=== PATIENT | male | born 1960 | race African-American/Black ===

== ENCOUNTER 2024-01-15 17:11 | Inpatient (IN) | payer OTHER ==
[2024-01-15] MEDS ORDERED: IBUPROFEN 600 MG TABLET (FP) PO PRN (21:11)
[2024-01-15] MEDS ORDERED: NALOXONE HCL (KLOXXADO) 8 MG SPRAY NS PRN (21:11)
[2024-01-15] MEDS ORDERED: BENZOCAINE/MENTHOL (CHLORASEPTIC ) LOZENGE MM PRN (21:11)
[2024-01-15] MEDS ORDERED: guaiFENesin 600 MG TABLET.ER (FP) PO PRN (21:11)
[2024-01-15] MEDS ORDERED: MAG HYDROX/AL HYDROX/SIMETH 30 ML UNIT-DOSE CUP PO PRN (21:11)
[2024-01-15] MEDS ORDERED: ACETAMINOPHEN 325 MG TABLET (FP) PO PRN (21:11)
[2024-01-15] MEDS ORDERED: LOPERAMIDE HCL 2 MG CAPSULE PO PRN (21:11)
[2024-01-15] MEDS ORDERED: IBUPROFEN 400 MG TABLET (FP) PO PRN (21:11)
[2024-01-15] MEDS ORDERED: NALOXONE HCL 0.4 MG/ML VIAL IM PRN (21:11)
[2024-01-15] MEDS ORDERED: MAGNESIUM HYDROX 2400MG/30ML ORAL SUSPENSION 30 ML CUP PO PRN (21:11)
[2024-01-15] MEDS ORDERED: BENZONATATE 200 MG CAPSULE PO PRN (21:11)
[2024-01-15] MEDS ORDERED: amLODIPine BESYLATE 5 MG TABLET (FP) ONE (21:45)
[2024-01-15] MEDS: amLODIPine BESYLATE 5 MG TABLET (FP) PO SCH (21:48)
[2024-01-15] MEDS: MELATONIN 5 MG TABLETS PO SCH (23:53)
[2024-01-15] MEDS: THIAMINE HCL 100 MG TABLET (FP) PO SCH (23:53)
[2024-01-16 01:06] VITALS: BMI 31.0
[2024-01-16] MEDS ORDERED: TUBERCULIN PPD 5 TU/0.1ML SYRINGE (IN PATIENT USE ONLY) ID ONE (01:14)
[2024-01-16] MEDS: PRENATAL VITAMINS W/ FOLIC ACID TABLET (FP) PO SCH (09:57)
[2024-01-16 10:50] LABS: HEMATOCRIT 41.8 % (35.4-49); HEMOGLOBIN 13.7 GM/dL (11.7-16.9); MCH 28.5 pg (25.7-33.7); MCHC 32.7 g/dl (32.0-35.9); MEAN CELL VOLUME 87.3 fl (80-96); MEAN PLT VOLUME 8.8 fl (7.5-11.1); PLATELET COUNT 199 10^3/uL (134-434); RBC 4.78 M/mm3 (4.00-5.60); RDW 13.8 % (11.9-15.9); WHITE BLOOD COUNT 4.3 K/mm3 (4.0-10.0)
[2024-01-16] MEDS: TAMSULOSIN HCL 0.4 MG CAP PO SCH (11:04)
[2024-01-16] MEDS: TUBERCULIN PPD 5 TU/0.1ML SYRINGE (IN PATIENT USE ONLY) ID ONE (11:04)
[2024-01-16 11:45] LABS: SYPHILIS W/ RPR CONF NON-REACTIVE (NONREACTIVE)
[2024-01-16 11:46] LABS: CHLORIDE 106 mmol/L (98-107); POTASSIUM 3.8 mmol/L (3.5-5.1); SODIUM 140 mmol/L (136-145)
[2024-01-16 11:59] LABS: ALBUMIN 3.3 g/dl (3.4-5.0); ANION GAP 8 mmol/L (4-13); BLOOD UREA NITROGEN 13.7 mg/dL (7-18); CO2 27 mmol/L (21-32)
[2024-01-16 12:00] LABS: GLUCOSE,RANDOM 139 mg/dL (74-106)
[2024-01-16 12:02] LABS: BILIRUBIN,TOTAL 0.2 mg/dL (0.2-1); CREATININE 0.8 mg/dL (0.55-1.3); SGOT/AST 24 U/L (15-37); SGPT/ALT 27 U/L (13-61); TOT PROT 7.2 g/dl (6.4-8.2)
[2024-01-16 12:03] LABS: ALK PHOS 79 U/L (45-117)
[2024-01-16 15:26] LABS: PH,URINE 5.5 (5.0-8.0); URINE APPEARANCE CLEAR; URINE BILIRUBIN NEGATIVE (NEGATIVE); URINE COLOR YELLOW; URINE GLUCOSE (UA) NEGATIVE (NEGATIVE); URINE KETONE NEGATIVE (NEGATIVE); URINE LEUK ESTERASE NEGATIVE (NEGATIVE); URINE NITRITE NEGATIVE (NEGATIVE); URINE PROTEIN NEGATIVE (NEGATIVE)
[2024-01-19] MEDS: MELATONIN 5 MG TABLETS PO PRN (21:07)
[2024-01-23] MEDS: TOLNAFTATE 1% CREAM 15 GM TUBE TP SCH (21:29)
[2024-01-27] MEDS: BACLOFEN 10 MG TABLET (FP) PO SCH (21:39)
[2024-01-28] MEDS: SALICYLIC ACID (WART REMOVER) 9 ML LIQUID TP SCH (09:52)
[2024-01-31] MEDS: POLYETHYLENE GLYCOL (HEALTHYLAX) 3350 17 GM PACKET PO PRN (10:16)
[2024-02-04 16:16] LABS: HIV INTERPRETATION NEGATIVE (NEGATIVE)
[2024-02-11 06:48] VITALS: TEMP 97.1
[2024-02-11 09:05] VITALS: BP 138/81; PULSE 99; RESP 16
== END 2024-02-11 09:05 | disposition home or self-care (01) | DRG 772 ==
LOC: YASAS 17:11 → Y3W 01-16 01:05
PROVIDERS: ADMIT Allergy & Immunology; ATTEND Psychiatry & Neurology Pain Medicine
PROC: HZ42ZZZ Group Counseling for Substance Abuse Treatment, Cognitive-Behavioral (ICD-10-PCS; principal; 2024-01-16)
DX: F10.20 Alcohol dependence, uncomplicated (principal); F14.20 Cocaine dependence, uncomplicated; F12.20 Cannabis dependence, uncomplicated; F19.282 Other psychoactive substance dependence with psychoactive substance-induced sleep disorder; G47.00 Insomnia, unspecified; I10 Essential (primary) hypertension; M19.90 Unspecified osteoarthritis, unspecified site; M54.50 Low back pain, unspecified; G89.29 Other chronic pain; N40.0 Benign prostatic hyperplasia without lower urinary tract symptoms; B35.1 Tinea unguium; B35.3 Tinea pedis; Z96.642 Presence of left artificial hip joint; Z91.148 Patient's other noncompliance with medication regimen for other reason
CPT/HCPCS: 36415; 80053; 80307; 81003; 82962; 85027; 86780; 86803; 87389; 87635; 93005; 93010; J0475

== ENCOUNTER 2024-03-13 13:38 | Inpatient (IN) | payer OTHER ==
[2024-03-13 15:37] VITALS: BMI 29.5
[2024-03-13] MEDS ORDERED: METHOCARBAMOL 500 MG TABLET PO PRN (17:34)
[2024-03-13] MEDS ORDERED: DICYCLOMINE HCL 10 MG CAPSULE PO PRN (17:34)
[2024-03-13] MEDS ORDERED: MAGNESIUM HYDROX 2400MG/30ML ORAL SUSPENSION 30 ML CUP PO PRN (17:34)
[2024-03-13] MEDS ORDERED: BENZOCAINE/MENTHOL (CHLORASEPTIC ) LOZENGE MM PRN (17:34)
[2024-03-13] MEDS ORDERED: NALOXONE HCL (KLOXXADO) 8 MG SPRAY NS PRN (17:34)
[2024-03-13] MEDS ORDERED: chlordiazePOXIDE HCL 25 MG CAPSULE PO PRN (17:34)
[2024-03-13] MEDS ORDERED: BENZONATATE 200 MG CAPSULE PO PRN (17:34)
[2024-03-13] MEDS ORDERED: ONDANSETRON *ODT* 4 MG TABLET SL PRN (17:34)
[2024-03-13] MEDS ORDERED: hydrOXYzine PAMOATE 25 MG CAPSULE (FP) PO PRN (17:34)
[2024-03-13] MEDS ORDERED: BISMUTH SUBSALICYLATE 524 MG/30 ML PO PRN (17:34)
[2024-03-13] MEDS ORDERED: guaiFENesin 600 MG TABLET.ER (FP) PO PRN (17:34)
[2024-03-13] MEDS ORDERED: IBUPROFEN 400 MG TABLET (FP) PO PRN (17:34)
[2024-03-13] MEDS ORDERED: POLYETHYLENE GLYCOL (HEALTHYLAX) 3350 17 GM PACKET PO PRN (17:34)
[2024-03-13] MEDS ORDERED: NALOXONE HCL 0.4 MG/ML VIAL IM PRN (17:34)
[2024-03-13] MEDS ORDERED: LOPERAMIDE HCL 2 MG CAPSULE PO PRN (17:34)
[2024-03-13] MEDS ORDERED: ACETAMINOPHEN 325 MG TABLET (FP) PO PRN (17:34)
[2024-03-13] MEDS ORDERED: IBUPROFEN 600 MG TABLET (FP) PO PRN (17:34)
[2024-03-13] MEDS ORDERED: MAG HYDROX/AL HYDROX/SIMETH 30 ML UNIT-DOSE CUP PO PRN (17:34)
[2024-03-13] MEDS: THIAMINE 100 MG TABLET PO SCH (22:17)
[2024-03-13] MEDS: chlordiazePOXIDE HCL 25 MG CAPSULE PO SCH (22:17)
[2024-03-13] MEDS: MELATONIN 5 MG TABLETS PO SCH (22:17)
[2024-03-14] MEDS: amLODIPine BESYLATE 10 MG TABLET (FP) PO SCH (10:08)
[2024-03-14] MEDS: TAMSULOSIN HCL 0.4 MG CAP PO SCH (10:08)
[2024-03-14] MEDS: PRENATAL VITAMINS W/ FOLIC ACID TABLET (FP) PO SCH (10:08)
[2024-03-14 11:16] LABS: HEMOGLOBIN 14.1 GM/dL (11.7-16.9); MCH 29.1 pg (25.7-33.7); MCHC 33.5 g/dl (32.0-35.9); MEAN CELL VOLUME 86.9 fl (80-96); MEAN PLT VOLUME 8.9 fl (7.5-11.1); PLATELET COUNT 153 10^3/uL (134-434); RBC 4.84 M/mm3 (4.00-5.60); RDW 13.7 % (11.9-15.9); WHITE BLOOD COUNT 3.7 K/mm3 (4.0-10.0)
[2024-03-14 11:19] LABS: CHLORIDE 104 mmol/L (98-107); POTASSIUM 3.4 mmol/L (3.5-5.1); SODIUM 136 mmol/L (136-145)
[2024-03-14 11:21] LABS: CALCIUM 8.7 mg/dL (8.5-10.1)
[2024-03-14 11:23] LABS: ALBUMIN 3.5 g/dl (3.4-5.0); ANION GAP 4 mmol/L (4-13); BLOOD UREA NITROGEN 11.2 mg/dL (7-18); CO2 28 mmol/L (21-32); GLUCOSE,RANDOM 84 mg/dL (74-106)
[2024-03-14 11:25] LABS: CREATININE 0.9 mg/dL (0.55-1.3); SGOT/AST 35 U/L (15-37); SGPT/ALT 34 U/L (13-61)
[2024-03-14 11:27] LABS: BILIRUBIN,TOTAL 0.5 mg/dL (0.2-1); TOT PROT 7.1 g/dl (6.4-8.2)
[2024-03-14 11:29] LABS: ALK PHOS 67 U/L (45-117)
[2024-03-15] MEDS: chlordiazePOXIDE HCL 25 MG CAPSULE PO SCH (06:00)
[2024-03-16] MEDS ORDERED: chlordiazePOXIDE HCL 10 MG CAPSULE PO PRN
[2024-03-16] MEDS: chlordiazePOXIDE HCL 10 MG CAPSULE PO SCH (05:50)
[2024-03-16 09:11] VITALS: BP 144/87; PULSE 89; RESP 20; TEMP 96.8
[2024-03-17] MEDS ORDERED: chlordiazePOXIDE HCL 10 MG CAPSULE PO SCH (05:00)
[2024-03-18] MEDS ORDERED: chlordiazePOXIDE HCL 10 MG CAPSULE PO ONE (05:00)
== END 2024-03-16 12:32 | disposition home or self-care (01) | DRG 774 ==
LOC: YASAS 13:38 → Y3N 17:17
PROVIDERS: ADMIT Allergy & Immunology; ATTEND Surgery
PROC: HZ2ZZZZ Detoxification Services for Substance Abuse Treatment (ICD-10-PCS; principal; 2024-03-13)
DX: F10.230 Alcohol dependence with withdrawal, uncomplicated (principal); F14.20 Cocaine dependence, uncomplicated; I10 Essential (primary) hypertension; N40.0 Benign prostatic hyperplasia without lower urinary tract symptoms; Z96.642 Presence of left artificial hip joint
CPT/HCPCS: 36415; 80053; 80307; 82140; 85027; 86780; 93005; 93010

== ENCOUNTER 2024-05-12 09:52 | Inpatient (IN) | payer OTHER ==
[2024-05-12 10:20] VITALS: BMI 30.7
[2024-05-12] MEDS ORDERED: LOPERAMIDE HCL 2 MG CAPSULE PO PRN (10:47)
[2024-05-12] MEDS ORDERED: MAG HYDROX/AL HYDROX/SIMETH 30 ML UNIT-DOSE CUP PO PRN (10:47)
[2024-05-12] MEDS ORDERED: MAGNESIUM HYDROX 2400MG/30ML ORAL SUSPENSION 30 ML CUP PO PRN (10:47)
[2024-05-12] MEDS ORDERED: hydrOXYzine PAMOATE 25 MG CAPSULE (FP) PO PRN (10:47)
[2024-05-12] MEDS ORDERED: BENZONATATE 200 MG CAPSULE PO PRN (10:47)
[2024-05-12] MEDS ORDERED: BENZOCAINE/MENTHOL (CHLORASEPTIC ) LOZENGE MM PRN (10:47)
[2024-05-12] MEDS ORDERED: guaiFENesin 600 MG TABLET.ER (FP) PO PRN (10:47)
[2024-05-12] MEDS ORDERED: ACETAMINOPHEN 325 MG TABLET (FP) PO PRN (10:47)
[2024-05-12] MEDS ORDERED: BISMUTH SUBSALICYLATE 262 MG/15 ML BTL PO PRN (10:47)
[2024-05-12] MEDS ORDERED: IBUPROFEN 400 MG TABLET (FP) PO PRN (10:47)
[2024-05-12] MEDS ORDERED: ONDANSETRON *ODT* 4 MG TABLET SL PRN (10:47)
[2024-05-12] MEDS ORDERED: DICYCLOMINE HCL 10 MG CAPSULE PO PRN (10:47)
[2024-05-12] MEDS ORDERED: POLYETHYLENE GLYCOL (HEALTHYLAX) 3350 17 GM PACKET PO PRN (10:47)
[2024-05-12] MEDS: TAMSULOSIN HCL 0.4 MG CAP PO SCH (12:11)
[2024-05-12] MEDS: THIAMINE 100 MG TABLET PO SCH (21:43)
[2024-05-12] MEDS: MELATONIN 5 MG TABLETS PO SCH (21:44)
[2024-05-13] MEDS: PRENATAL VITAMINS W/ FOLIC ACID TABLET (FP) PO SCH (09:52)
[2024-05-13] MEDS: amLODIPine BESYLATE 10 MG TABLET (FP) PO SCH (09:52)
[2024-05-13 12:03] LABS: HEMATOCRIT 38.6 % (35.4-49); HEMOGLOBIN 12.5 GM/dL (11.7-16.9); MCH 28.5 pg (25.7-33.7); MCHC 32.3 g/dl (32.0-35.9); MEAN CELL VOLUME 88.2 fl (80-96); MEAN PLT VOLUME 8.6 fl (7.5-11.1); PLATELET COUNT 175 10^3/uL (134-434); RBC 4.38 M/mm3 (4.00-5.60); RDW 13.5 % (11.9-15.9); WHITE BLOOD COUNT 4.8 K/mm3 (4.0-10.0)
[2024-05-13 12:13] LABS: CHLORIDE 105 mmol/L (98-107); POTASSIUM 3.4 mmol/L (3.5-5.1); SODIUM 138 mmol/L (136-145)
[2024-05-13 12:19] LABS: ALBUMIN 3.2 g/dl (3.4-5.0); GLUCOSE,RANDOM 85 mg/dL (74-106)
[2024-05-13 12:20] LABS: ANION GAP 4 mmol/L (4-13); BLOOD UREA NITROGEN 9.4 mg/dL (7-18); CALCIUM 8.8 mg/dL (8.5-10.1); CO2 29 mmol/L (21-32)
[2024-05-13 12:21] LABS: CREATININE 0.7 mg/dL (0.55-1.3)
[2024-05-13 12:22] LABS: BILIRUBIN,TOTAL 0.4 mg/dL (0.2-1); SGOT/AST 28 U/L (15-37); SGPT/ALT 28 U/L (13-61); TOT PROT 6.4 g/dl (6.4-8.2)
[2024-05-13 12:23] LABS: ALK PHOS 56 U/L (45-117)
[2024-05-14] MEDS: METHOCARBAMOL 500 MG TABLET PO PRN (09:53)
[2024-05-14] MEDS: IBUPROFEN 600 MG TABLET (FP) PO PRN (15:07)
[2024-05-14 16:43] VITALS: BP 136/80; PULSE 78; RESP 18; TEMP 97.6
== END 2024-05-14 16:55 | disposition other institution (70) | DRG 774 ==
LOC: YASAS 09:52 → Y3N 11:10
PROVIDERS: ADMIT Allergy & Immunology; ATTEND Surgery
PROC: HZ2ZZZZ Detoxification Services for Substance Abuse Treatment (ICD-10-PCS; principal; 2024-05-12)
DX: F10.230 Alcohol dependence with withdrawal, uncomplicated (principal); F14.20 Cocaine dependence, uncomplicated; F12.20 Cannabis dependence, uncomplicated; I10 Essential (primary) hypertension; M16.11 Unilateral primary osteoarthritis, right hip; M54.50 Low back pain, unspecified; G89.29 Other chronic pain; N40.0 Benign prostatic hyperplasia without lower urinary tract symptoms; Z56.0 Unemployment, unspecified; Z59.02 Unsheltered homelessness
CPT/HCPCS: 36415; 80053; 80305; 80307; 85027; 86780

== ENCOUNTER 2024-05-14 17:06 | Inpatient (IN) | payer OTHER ==
[2024-05-14] MEDS ORDERED: POLYETHYLENE GLYCOL (HEALTHYLAX) 3350 17 GM PACKET PO PRN (18:41)
[2024-05-14] MEDS ORDERED: METHOCARBAMOL 500 MG TABLET PO PRN (18:41)
[2024-05-14] MEDS ORDERED: NALOXONE (NARCAN) HCL 4 MG/0.1 ML SPRAY NS PRN (18:41)
[2024-05-14] MEDS ORDERED: IBUPROFEN 400 MG TABLET (FP) PO PRN (18:41)
[2024-05-14] MEDS ORDERED: BENZOCAINE/MENTHOL (CHLORASEPTIC ) LOZENGE MM PRN (18:41)
[2024-05-14] MEDS ORDERED: ACETAMINOPHEN 325 MG TABLET (FP) PO PRN (18:41)
[2024-05-14] MEDS ORDERED: NALOXONE HCL 0.4 MG/ML VIAL IVPUSH PRN (18:41)
[2024-05-14] MEDS ORDERED: MAGNESIUM HYDROX 2400MG/30ML ORAL SUSPENSION 30 ML CUP PO PRN (18:41)
[2024-05-14] MEDS ORDERED: BENZONATATE 200 MG CAPSULE PO PRN (18:41)
[2024-05-14] MEDS ORDERED: guaiFENesin 600 MG TABLET.ER (FP) PO PRN (18:41)
[2024-05-14] MEDS ORDERED: MAG HYDROX/AL HYDROX/SIMETH 30 ML UNIT-DOSE CUP PO PRN (18:41)
[2024-05-14] MEDS: MELATONIN 5 MG TABLETS PO SCH (22:50)
[2024-05-14] MEDS: THIAMINE 100 MG TABLET PO SCH (22:51)
[2024-05-15] MEDS: TAMSULOSIN HCL 0.4 MG CAP PO SCH (07:01)
[2024-05-15] MEDS: PRENATAL VITAMINS W/ FOLIC ACID TABLET (FP) PO SCH (10:00)
[2024-05-15] MEDS: amLODIPine BESYLATE 10 MG TABLET (FP) PO SCH (10:00)
[2024-05-15] MEDS: hydrOXYzine PAMOATE 25 MG CAPSULE (FP) PO PRN (21:30)
[2024-05-16] MEDS: IBUPROFEN 600 MG TABLET (FP) PO PRN (10:15)
[2024-05-17] MEDS: LOPERAMIDE HCL 2 MG CAPSULE PO PRN (06:44)
[2024-05-17] MEDS: POTASSIUM CHLORIDE ORAL LIQUID 20 MEQ/15 ML PO ONE (14:29)
[2024-05-20] MEDS: TAMSULOSIN HCL 0.4 MG CAP PO SCH (06:39)
[2024-05-26 06:59] VITALS: RESP 18
[2024-06-03] MEDS: TOLNAFTATE 1% CREAM 15 GM TUBE TP SCH (10:19)
[2024-06-03] MEDS: BISACODYL 5 MG TABLET.DR (FP) PO PRN (10:19)
[2024-06-08 07:02] VITALS: TEMP 97
[2024-06-09 11:59] VITALS: BP 116/61; PULSE 96
== END 2024-06-09 09:20 | disposition home or self-care (01) | DRG 772 ==
LOC: YASAS 17:06 → Y5N 17:07
PROVIDERS: ADMIT Allergy & Immunology; ATTEND Psychiatry & Neurology Pain Medicine
PROC: HZ42ZZZ Group Counseling for Substance Abuse Treatment, Cognitive-Behavioral (ICD-10-PCS; principal; 2024-05-14)
DX: F14.20 Cocaine dependence, uncomplicated (principal); F10.20 Alcohol dependence, uncomplicated; F12.20 Cannabis dependence, uncomplicated; I10 Essential (primary) hypertension; B35.3 Tinea pedis; K59.00 Constipation, unspecified; M17.11 Unilateral primary osteoarthritis, right knee; N40.0 Benign prostatic hyperplasia without lower urinary tract symptoms; Z59.02 Unsheltered homelessness
CPT/HCPCS: 72100-TC-FY

== ENCOUNTER 2025-02-03 08:16 | Inpatient (IN) | payer OTHER ==
[2025-02-03 08:52] VITALS: BMI 28.0
[2025-02-03] MEDS ORDERED: BISMUTH SUBSALICYLATE 262 MG/15 ML BTL PO PRN (09:06)
[2025-02-03] MEDS ORDERED: LOPERAMIDE HCL 2 MG CAPSULE PO PRN (09:06)
[2025-02-03] MEDS ORDERED: chlordiazePOXIDE HCL 25 MG CAPSULE PO PRN (09:06)
[2025-02-03] MEDS ORDERED: NALOXONE (NARCAN) HCL 4 MG/0.1 ML SPRAY NS PRN (09:06)
[2025-02-03] MEDS ORDERED: DICYCLOMINE HCL 10 MG CAPSULE PO PRN (09:06)
[2025-02-03] MEDS ORDERED: BENZOCAINE/MENTHOL (CHLORASEPTIC ) LOZENGE MM PRN (09:06)
[2025-02-03] MEDS ORDERED: IBUPROFEN 600 MG TABLET (FP) PO PRN (09:06)
[2025-02-03] MEDS ORDERED: MAGNESIUM HYDROX 2400MG/30ML ORAL SUSPENSION 30 ML CUP PO PRN (09:06)
[2025-02-03] MEDS ORDERED: POLYETHYLENE GLYCOL (HEALTHYLAX) 3350 17 GM PACKET PO PRN (09:06)
[2025-02-03] MEDS ORDERED: hydrOXYzine PAMOATE 25 MG CAPSULE (FP) PO PRN (09:06)
[2025-02-03] MEDS ORDERED: BENZONATATE 200 MG CAPSULE PO PRN (09:06)
[2025-02-03] MEDS ORDERED: MAG HYDROX/AL HYDROX/SIMETH 30 ML UNIT-DOSE CUP PO PRN (09:06)
[2025-02-03] MEDS ORDERED: ONDANSETRON *ODT* 4 MG TABLET SL PRN (09:06)
[2025-02-03] MEDS ORDERED: METHOCARBAMOL 500 MG TABLET PO PRN (09:06)
[2025-02-03] MEDS ORDERED: guaiFENesin 600 MG TABLET.ER (FP) PO PRN (09:06)
[2025-02-03] MEDS ORDERED: IBUPROFEN 400 MG TABLET (FP) PO PRN (09:06)
[2025-02-03] MEDS ORDERED: MELATONIN 5 MG TABLETS PO PRN (09:10)
[2025-02-03] MEDS ORDERED: BISACODYL 5 MG TABLET.DR (FP) PO PRN (09:10)
[2025-02-03] MEDS ORDERED: cloNIDine HCL 0.1 MG TABLET ONE (10:30)
[2025-02-03] MEDS ORDERED: chlordiazePOXIDE HCL 25 MG CAPSULE ONE (10:30)
[2025-02-03] MEDS ORDERED: amLODIPine BESYLATE 5 MG TABLET (FP) ONE (10:30)
[2025-02-03] MEDS ORDERED: PRENATAL VITAMINS W/ FOLIC ACID TABLET (FP) PO ONE (10:31)
[2025-02-03] MEDS: amLODIPine BESYLATE 10 MG TABLET (FP) PO SCH (10:32)
[2025-02-03] MEDS: chlordiazePOXIDE HCL 25 MG CAPSULE PO SCH (10:32)
[2025-02-03] MEDS: cloNIDine HCL 0.1 MG TABLET PO SCH (10:32)
[2025-02-03] MEDS: PRENATAL VITAMINS W/ FOLIC ACID TABLET (FP) PO SCH (10:33)
[2025-02-03] MEDS: THIAMINE 100 MG TABLET PO SCH (22:25)
[2025-02-03] MEDS: MELATONIN 5 MG TABLETS PO SCH (22:25)
[2025-02-04] MEDS: TAMSULOSIN HCL 0.4 MG CAP PO SCH (06:37)
[2025-02-04 12:15] LABS: HEMATOCRIT 38.3 % (35.4-49); HEMOGLOBIN 12.8 GM/dL (11.7-16.9); MCH 28.8 pg (25.7-33.7); MCHC 33.5 g/dl (32.0-35.9); MEAN PLT VOLUME 9.5 fl (7.5-11.1); PLATELET COUNT 126 10^3/uL (134-434); RBC 4.46 M/mm3 (4.00-5.60); RDW 13.3 % (11.9-15.9)
[2025-02-04 12:26] LABS: POTASSIUM 4.1 mmol/L (3.5-5.1)
[2025-02-04 12:30] LABS: ALBUMIN 3.7 g/dl (3.4-5.0); BLOOD UREA NITROGEN 10.7 mg/dL (7-18); CALCIUM 9.1 mg/dL (8.5-10.1)
[2025-02-04 12:34] LABS: CREATININE 0.9 mg/dL (0.55-1.3)
[2025-02-04 12:35] LABS: BILIRUBIN,TOTAL 0.5 mg/dL (0.2-1); TOT PROT 7.2 g/dl (6.4-8.2)
[2025-02-05] MEDS: chlordiazePOXIDE HCL 25 MG CAPSULE PO SCH (06:11)
[2025-02-06] MEDS ORDERED: chlordiazePOXIDE HCL 10 MG CAPSULE PO PRN
[2025-02-06] MEDS: chlordiazePOXIDE HCL 10 MG CAPSULE PO SCH (06:03)
[2025-02-07] MEDS: chlordiazePOXIDE HCL 10 MG CAPSULE PO SCH (05:45)
[2025-02-08] MEDS: chlordiazePOXIDE HCL 10 MG CAPSULE PO ONE (05:29)
[2025-02-08] MEDS: ACETAMINOPHEN 325 MG TABLET (FP) PO PRN (05:30)
[2025-02-08 09:19] VITALS: BP 139/84; PULSE 82; RESP 16; TEMP 98
== END 2025-02-08 09:38 | disposition home or self-care (01) | DRG 774 ==
LOC: YASAS 08:16 → Y3N 11:11
PROVIDERS: ADMIT Allergy & Immunology; ATTEND Allergy & Immunology
PROC: HZ2ZZZZ Detoxification Services for Substance Abuse Treatment (ICD-10-PCS; principal; 2025-02-03)
DX: F10.230 Alcohol dependence with withdrawal, uncomplicated (principal); F14.20 Cocaine dependence, uncomplicated; F12.20 Cannabis dependence, uncomplicated; D69.6 Thrombocytopenia, unspecified; I10 Essential (primary) hypertension; M54.50 Low back pain, unspecified; G89.29 Other chronic pain; N40.0 Benign prostatic hyperplasia without lower urinary tract symptoms; Z96.642 Presence of left artificial hip joint
CPT/HCPCS: 36415; 80053; 80305; 80307; 85027; 86780; 93005; 93010